=== PATIENT | female | born 1950 | race Caucasian/White ===

== ENCOUNTER → 2016-08-24 | Day surgery (SDC) | payer MEDICARE, OTHER ==
[~2016-08-24] MED LIST: Apraclonidine 0.5% Ophth Soln 5 ML Bot EYELF SCH; Phenylephrine 2.5% Ophth Soln 2 ML Bot EYELF SCH
[2016-08-24 14:16] VITALS: BP 142/71
== END ==
LOC: JD.SDS 09:43
PROVIDERS: ATTEND Ophthalmology
DX: H26.492 Other secondary cataract, left eye (principal); I10 Essential (primary) hypertension; E11.9 Type 2 diabetes mellitus without complications; E78.00 Pure hypercholesterolemia, unspecified; Z79.4 Long term (current) use of insulin; Z98.890 Other specified postprocedural states; E07.9 Disorder of thyroid, unspecified; Z87.891 Personal history of nicotine dependence; Z79.82 Long term (current) use of aspirin; Z79.899 Other long term (current) drug therapy